=== PATIENT | male | born 1985 | race African-American/Black ===

== ENCOUNTER 2022-09-22 12:25 | Emergency (ER) | payer OTHER ==
[2022-09-22] MEDS ORDERED: Fluorescein Opthalmic Strip ONE (13:29)
[2022-09-22] MEDS ORDERED: Proparacaine 0.5% Opth 15 ML BOT ONE (13:30)
[2022-09-22] MEDS ORDERED: Acetaminophen 500 MG TAB ONE (13:33)
[2022-09-22 16:56] LABS: SARS-CoV-2 NAA Rapid Test Not Detected (NotDetected)
[2022-09-22] MEDS ORDERED: Ketorolac Tromethamine 30 MG/ML VIAL ONE (18:05)
== END 2022-09-22 18:09 | disposition short-term general hospital (02) ==
LOC: ERS 12:25
DX: S02.32XA Fracture of orbital floor, left side, initial encounter for closed fracture (principal); I10 Essential (primary) hypertension; W22.8XXA Striking against or struck by other objects, initial encounter; Z79.899 Other long term (current) drug therapy
CPT/HCPCS: 70480; 96372; J1885; U0002